=== PATIENT | female | born 1960 ===

== ENCOUNTER → 2017-07-20 07:26 | Outpatient (CLI) | payer OTHER | END | disposition home or self-care (01) | LOC: LAB 07:26 | DX: E11.9 Type 2 diabetes mellitus without complications (principal); E55.9 Vitamin D deficiency, unspecified; Z12.11 Encounter for screening for malignant neoplasm of colon; Z13.29 Encounter for screening for other suspected endocrine disorder ==

== ENCOUNTER 2017-07-21 10:09 | Outpatient (CLI) | payer OTHER | END 2017-07-21 10:19 | disposition home or self-care (01) | LOC: LAB 10:09 | DX: E11.8 Type 2 diabetes mellitus with unspecified complications (principal); E55.9 Vitamin D deficiency, unspecified; Z12.11 Encounter for screening for malignant neoplasm of colon; Z13.29 Encounter for screening for other suspected endocrine disorder ==

== ENCOUNTER 2018-03-02 07:23 | Outpatient (CLI) | payer OTHER | END 2018-03-02 07:40 | disposition home or self-care (01) | LOC: LAB 07:23 | DX: E11.69 Type 2 diabetes mellitus with other specified complication (principal); E55.9 Vitamin D deficiency, unspecified; E78.4 Other hyperlipidemia; E88.89 Other specified metabolic disorders; I11.9 Hypertensive heart disease without heart failure ==

== ENCOUNTER 2018-08-16 07:25 | Outpatient (CLI) | payer OTHER | END 2018-08-16 07:37 | disposition home or self-care (01) | LOC: LAB 07:25 | DX: E11.69 Type 2 diabetes mellitus with other specified complication (principal); E55.9 Vitamin D deficiency, unspecified; E78.49 Other hyperlipidemia; E88.89 Other specified metabolic disorders; I11.9 Hypertensive heart disease without heart failure ==

== ENCOUNTER → 2019-01-22 07:09 | Outpatient (CLI) | payer OTHER | END | disposition home or self-care (01) | LOC: LAB 07:09 | DX: E11.69 Type 2 diabetes mellitus with other specified complication (principal); E55.9 Vitamin D deficiency, unspecified; E78.49 Other hyperlipidemia; E88.89 Other specified metabolic disorders; I11.9 Hypertensive heart disease without heart failure; Z12.11 Encounter for screening for malignant neoplasm of colon; Z13.29 Encounter for screening for other suspected endocrine disorder ==